=== PATIENT | male | born 1995 | race Caucasian/White ===

== ENCOUNTER 2018-09-01 16:22 | Emergency (ER) | payer OTHER ==
[~2018-09-01] VITALS: Ht 182.9 cm; Wt 84.7 kg
[2018-09-01] MEDS ORDERED: ONDANSETRON 2MG/ML, 2ML IVPush ONE (16:30)
[2018-09-01] MEDS ORDERED: HYDROmorphone 2 MG/ML, 1ML IVPush PRN (16:30)
[2018-09-01] MEDS ORDERED: KETOROLAC 30 MG/1 ML IVPush ONE (16:30)
[2018-09-01] MEDS ORDERED: HYDROmorphone 2 MG/ML, 1ML ONE (16:36)
[2018-09-01] MEDS ORDERED: ONDANSETRON 2MG/ML, 2ML ONE (16:36)
[2018-09-01] MEDS ORDERED: KETOROLAC 30 MG/1 ML ONE (16:36)
[2018-09-01 16:56] LABS: BASOPHILS # (AUTO) 0.04 x10^3/uL (0-0.1); BASOPHILS % (AUTO) 0 % (0-1); EOSINOPHILS % (AUTO) 1 % (1-7); LYMPHOCYTES % (AUTO) 21 % (22-44); MD NO; MEAN CORPUSCULAR HEMOGLOBIN 30.4 pg (27.5-34.5); MEAN CORPUSCULAR HGB CONC 34.6 g/dL (33.2-36.2); MEAN CORPUSCULAR VOLUME 87.7 fL (81-97); MEAN PLATELET VOLUME 7.5 fL (7.4-10.4); MONOCYTES # (AUTO) 0.66 x10^3/uL (0.2-0.8); MONOCYTES % (AUTO) 6 % (2-9); NEUTROPHILS # (AUTO) 7.93 x10^3/uL (1.8-6.8); NEUTROPHILS % (AUTO) 72 % (42-75); PLATELET COUNT 274 x10^3/uL (130-400); RED BLOOD COUNT 5.31 x10^6/uL (4.38-5.82)
--- NOTE | 2018-09-01 16:59 | NUR ---
PATIENT ARRIVES TO ER WITH MOM WIHT FLANK PAIN THAT BEGAN A WEEK AGO ACCOMPANIED WITH SOME BLOOD URINE. HE STATES IT BEGAN BILATERAL FLANK/GROIN PAIN BUT IS NOW JUST RIGHT SIDED FLANK PAIN. MEDICATED. IV IN PLACE. URINE SENT TO LAB. ON MONITOR, RAILS UP.
[2018-09-01 17:08] LABS: ALANINE AMINOTRANSFERASE 24 U/L (12-78); ALBUMIN 4.3 g/dL (3.4-5.0); ANION GAP 10 mmol/L (5-15); CHLORIDE 107 mmol/L (98-107); CREATININE 1.05 mg/dL (0.7-1.3)
[2018-09-01 17:10] LABS: ALKALINE PHOSPHATASE 472 U/L (45-117); BILIRUBIN,TOTAL 0.4 mg/dL (0.2-1.0); TOTAL PROTEIN 7.4 g/dL (6.4-8.2)
[2018-09-01 17:13] LABS: MICROSCOPIC AUTO
[2018-09-01 17:18] LABS: CULTURE INDICATED? NO
--- NOTE | 2018-09-01 17:59 | NUR ---
patient back from radiology and awaiting er workup. he is calm, painfree and cooperative. mom at bedside.
[2018-09-01 18:12] VITALS: BP 122/78
--- NOTE | 2018-09-01 18:20 | NUR ---
discharge teaching reviewed, shows understanding. left with mom driving.
== END 2018-09-01 18:21 | disposition home or self-care (01) ==
LOC: ED 18:05
DX: N20.0 Calculus of kidney (principal)
CPT/HCPCS: 36415; 74176; 80053; 81001; 83690; 85025; 96374; 96375; 99284; J1170; J1885; J2405